=== PATIENT | female | born 1940 | race Hispanic/Latino ===

== ENCOUNTER → 2023-12-30 | Outpatient (CLI) | payer OTHER, MEDICARE ==
[~2023-12-30] MED LIST: BACL10TA PO; GLIP5TAB15 PO; HYDR25TA PO; METF-444 PO; METO-408 PO; NITR100C9 PO; SIMV40TA59 PO; SITA100T12 PO
== END | disposition home or self-care (01) ==
LOC: RAH 07:34
PROVIDERS: ATTEND Internal Medicine Gastroenterology
DX: R14.0 Abdominal distension (gaseous) (principal)
CPT/HCPCS: 78264; A9541

== ENCOUNTER 2024-03-24 19:03 | Inpatient (IN) | payer OTHER, MEDICARE ==
[~2024-03-24] VITALS: Ht 152.4 cm; Wt 55.7 kg
[~2024-03-24 19:03] MED LIST changes: -BACL10TA PO; +FAMO40TA7 PO; +ISOS20TA85 PO; -METF-444 PO; +METF-527 PO; -NITR100C9 PO; +PANT20TA18 PO; +PRAV40TA3 PO; -SIMV40TA59 PO; +SUCR1TAB2 PO; +TELM20TA8 PO
[2024-03-24 19:47] LABS: BASOPHILS # (AUTO) 0.02 K/uL (0.00-0.20); BASOPHILS % (AUTO) 0.1 % (0.0-5.0); HEMATOCRIT 30.5 % (36-48); IMMATURE GRANULOCYTE ABSOLUTE 0.13 K/uL (0-1); LYMPHOCYTES # (AUTO) 0.6 K/uL (1.0-4.8); LYMPHOCYTES % (AUTO) 2.9 % (21.0-51.0); MEAN CORPUSCULAR HEMOGLOBIN 34.9 pg (27.0-33.0); MEAN CORPUSCULAR HGB CONC 34.8 g/dL (32.0-36.0); MEAN CORPUSCULAR VOLUME 100.3 fL (79-99); MONOCYTES # (AUTO) 1.3 K/uL (0.1-1.0); MONOCYTES % (AUTO) 6.8 % (3.0-13.0); NEUTROPHILS % (AUTO) 89.5 % (40.0-77.0); PLATELET COUNT (AUTO) 122 K/uL (130-400); RED BLOOD CELL COUNT(AUTO) 3.04 MIL/uL (4.00-5.50); RED CELL DISTRIBUTION WIDTH 13.6 % (11.0-15.5)
[2024-03-24 20:05] LABS: CREATININE 1.2 mg/dL (0.5-1.0); POTASSIUM 4.6 mmol/L (3.5-5.1)
[2024-03-24 20:11] LABS: ALBUMIN 2.3 g/dL (3.5-5.0); BILIRUBIN,TOTAL 0.5 mg/dL (0.2-1.0); TOTAL PROTEIN, SERUM 6.2 g/dL (6.0-8.3)
[2024-03-24] MEDS: 0.9%NACL 1000ML 1,000 ML IV ONE (20:51)
[2024-03-24] MEDS ORDERED: IOHEXOL-350 75 ML VIAL IV ONE (21:40)
[2024-03-24 22:46] LABS: APPEARANCE,URINE CLEAR (CLEAR); BILIRUBIN,URINE NEGATIVE (NEGATIVE); COLOR,URINE COLORLESS (YELLOW); GLUCOSE, URINE (UA) 300 mg/dL (NEGATIVE); KETONES,URINE NEGATIVE (NEGATIVE); LEUKOCYTE ESTERASE ,URINE NEGATIVE Leu/uL (NEGATIVE); NITRATE,URINE NEGATIVE (NEGATIVE); OCCULT BLOOD,URINE NEGATIVE (NEGATIVE); PH,URINE 6.5 (5.0-8.0); PROTEIN,URINE NEGATIVE (NEGATIVE); UROBILINOGEN,URINE 0.2 mg/dL (0.2-1.0)
[2024-03-24 22:49] LABS: BACTERIA,URINE RARE /HPF (None Seen); MUCUS,URINE RARE LPF (None Seen); RBC,URINE 0-1 /HPF (0-1); SQUAMOUS EPITHELIAL CELL,UR RARE /HPF (0-2)
[2024-03-24] MEDS: ONDANSETRON 4MG INJ IVP ONE (23:31)
[2024-03-24] MEDS: CEFTRIAXONE 2GM VIAL IVPB STA (23:31)
[2024-03-25] MEDS ORDERED: ACETAMINOPHEN 325 MG TAB PO PRN
[2024-03-25] MEDS ORDERED: VANCOMYCIN KIT 1 GM/250 ML IV.KIT IV ONE
[2024-03-25] MEDS ORDERED: CIPR500T10 PO (00:03)
[2024-03-25] MEDS ORDERED: CLOP75TA32 PO (00:03)
[2024-03-25] MEDS ORDERED: ASPI-1197 PO (00:03)
[2024-03-25] MEDS ORDERED: PANT40GR PO (00:03)
[2024-03-25] MEDS ORDERED: ONDA22I IM (00:03)
[2024-03-25] MEDS ORDERED: LISI2.5T13 PO (00:03)
[2024-03-25] MEDS: 0.9%NACL 1000ML 1,000 ML IV SCH (00:07)
[2024-03-25] MEDS: METRONIDAZOLE 500MG/100ML BAG IV STA (00:07)
[2024-03-25] MEDS: 0.9%NACL 50ML IV SCH (02:50)
[2024-03-25] MEDS: ZOSYN 3.375GM +NS 50ML IVPB SCH (02:51)
[2024-03-25] MEDS: VANCOMYCIN KIT 1 GM/250 ML IV.KIT IV ONE (02:52)
[2024-03-25] MEDS ORDERED: VANCOMYCIN PROTOCOL PER PHARMACY IV SCH (03:00)
[2024-03-25] MEDS: ONDANSETRON 4MG INJ IVP ONE (03:28)
[2024-03-25] MEDS: MORPHINE 2 MG SYG IM ONE (03:30)
[2024-03-25] MEDS: HYDROMORPHONE 0.5 MG SYG (0.5MG/0.5ML) IVP ONE (06:06)
[2024-03-25] MEDS: ONDANSETRON 4MG INJ IVP PRN (06:06)
[2024-03-25 06:29] LABS: ALBUMIN 2.1 g/dL (3.5-5.0); BILIRUBIN,TOTAL 0.3 mg/dL (0.2-1.0); POTASSIUM 4.4 mmol/L (3.5-5.1); TOTAL PROTEIN, SERUM 5.7 g/dL (6.0-8.3)
[2024-03-25] MEDS: MAGNESIUM 2GM PREMIX 50ML 50 ML IV PRN (08:00)
[2024-03-25 08:39] LABS: BASOPHILS # (AUTO) 0.03 K/uL (0.00-0.20); BASOPHILS % (AUTO) 0.2 % (0.0-5.0); IMMATURE GRANULOCYTE ABSOLUTE 0.13 K/uL (0-1); LYMPHOCYTES # (AUTO) 0.4 K/uL (1.0-4.8); LYMPHOCYTES % (AUTO) 2.3 % (21.0-51.0); MEAN CORPUSCULAR HEMOGLOBIN 35.3 pg (27.0-33.0); MEAN CORPUSCULAR HGB CONC 35.2 g/dL (32.0-36.0); MEAN CORPUSCULAR VOLUME 100.3 fL (79-99); MONOCYTES # (AUTO) 0.9 K/uL (0.1-1.0); MONOCYTES % (AUTO) 5.8 % (3.0-13.0); NEUTROPHILS # (AUTO) 14.5 K/uL (1.8-7.7); NEUTROPHILS % (AUTO) 90.9 % (40.0-77.0); PLATELET COUNT (AUTO) 125 K/uL (130-400); RED BLOOD CELL COUNT(AUTO) 2.89 MIL/uL (4.00-5.50); RED CELL DISTRIBUTION WIDTH 13.6 % (11.0-15.5); WHITE BLOOD COUNT (AUTO) 15.9 K/uL (4.8-10.8)
[2024-03-25 08:40] VITALS: BP 130/59; PULSE 84; RESP 16; O2SAT 97
[2024-03-25 09:14] VITALS: O2SAT 97
[2024-03-25] MEDS ORDERED: ONDANSETRON 4MG INJ IV PRN (10:00)
[2024-03-25] MEDS: TELMISARTAN 20 MG PO SCH (11:00)
[2024-03-25] MEDS: METOPROLOL SUCCINATE 25 MG TAB.SR.24H PO SCH (11:17)
[2024-03-25] MEDS: CLOPIDOGREL 75MG TAB PO SCH (11:18)
[2024-03-25] MEDS: LISINOPRIL 2.5 MG TABLET PO SCH (11:18)
[2024-03-25] MEDS: ASPIRIN 81MG CHEW TAB PO SCH (11:18)
[2024-03-25] MEDS: PANTOPRAZOLE 40 MG TAB DR PO SCH (11:18)
[2024-03-25] MEDS: SITAGLIPTIN 100 MG PO SCH (11:24)
[2024-03-25 11:30] VITALS: BP 119/64; PULSE 84; RESP 16
[2024-03-25] MEDS ORDERED: PHARMACY COMMUNICATION MISC SCH (11:30)
[2024-03-25] MEDS: SUCRALFATE 1 GM TABLET PO SCH (14:16)
[2024-03-25] MEDS: MAGNESIUM 2GM PREMIX 50ML 50 ML IV ONE (15:38)
[2024-03-25 16:46] VITALS: BP 122/65; PULSE 71; RESP 16
[2024-03-25 20:00] VITALS: BP 142/64; PULSE 89; RESP 18
[2024-03-25] MEDS: VANCOMYCIN 500MG+NS 100ML IV SCH (20:49)
[2024-03-25] MEDS: VOLTAREN PO SCH (20:52)
[2024-03-26] VITALS (9 sets, daily range): BP systolic 119–157; BP diastolic 48–73; PULSE 73–88; RESP 16–20; O2SAT 97–98
[2024-03-26 03:52] LABS: HEMATOCRIT 26.4 % (36-48); MEAN CORPUSCULAR HEMOGLOBIN 34.2 pg (27.0-33.0); MEAN CORPUSCULAR HGB CONC 34.5 g/dL (32.0-36.0); MEAN CORPUSCULAR VOLUME 99.2 fL (79-99); RED BLOOD CELL COUNT(AUTO) 2.66 MIL/uL (4.00-5.50); RED CELL DISTRIBUTION WIDTH 13.6 % (11.0-15.5); WHITE BLOOD COUNT (AUTO) 13.2 K/uL (4.8-10.8)
[2024-03-26 04:09] LABS: ALBUMIN 1.8 g/dL (3.5-5.0); BILIRUBIN,TOTAL 0.3 mg/dL (0.2-1.0); CREATININE 1.1 mg/dL (0.5-1.0); MAGNESIUM 2.1 mg/dL (1.80-2.40); POTASSIUM 4.4 mmol/L (3.5-5.1); TOTAL PROTEIN, SERUM 4.9 g/dL (6.0-8.3)
[2024-03-26] MEDS ORDERED: CIPROFLOXACIN HCL 500 MG PO SCH (09:00)
[2024-03-26] MEDS ORDERED: NON-FORMULARY MEDICATION 1 EACH (Sitagliptin Phosphate (Januvia) 100 MG) PO SCH (09:00)
[2024-03-26] MEDS: IPRATROPIUM 0.5 MG/2.5 ML INH IH SCH (11:10)
[2024-03-27] VITALS (9 sets, daily range): BP systolic 124–158; BP diastolic 61–75; PULSE 72–102; RESP 16–20; O2SAT 96–99
[2024-03-27 05:39] LABS: BASOPHILS # (AUTO) 0.04 K/uL (0.00-0.20); BASOPHILS % (AUTO) 0.4 % (0.0-5.0); EOSINOPHILS # (AUTO) 0.05 K/uL (0.00-0.70); EOSINOPHILS % (AUTO) 0.5 % (0.0-8.0); HEMATOCRIT 27.5 % (36-48); LYMPHOCYTES # (AUTO) 1.3 K/uL (1.0-4.8); LYMPHOCYTES % (AUTO) 13.7 % (21.0-51.0); MEAN CORPUSCULAR HEMOGLOBIN 34.4 pg (27.0-33.0); MEAN CORPUSCULAR HGB CONC 33.8 g/dL (32.0-36.0); MEAN CORPUSCULAR VOLUME 101.9 fL (79-99); MONOCYTES # (AUTO) 0.8 K/uL (0.1-1.0); MONOCYTES % (AUTO) 8.9 % (3.0-13.0); NEUTROPHILS # (AUTO) 6.9 K/uL (1.8-7.7); NEUTROPHILS % (AUTO) 75.4 % (40.0-77.0); PLATELET COUNT (AUTO) 141 K/uL (130-400); RED CELL DISTRIBUTION WIDTH 13.7 % (11.0-15.5); WHITE BLOOD COUNT (AUTO) 9.1 K/uL (4.8-10.8)
[2024-03-27 05:54] LABS: ALBUMIN 1.8 g/dL (3.5-5.0); BILIRUBIN,TOTAL 0.4 mg/dL (0.2-1.0); CREATININE 1.2 mg/dL (0.5-1.0); POTASSIUM 3.9 mmol/L (3.5-5.1)
[2024-03-28] VITALS: BP 144/63; PULSE 77; RESP 18
[2024-03-28 04:00] VITALS: BP 135/60; PULSE 76; RESP 15
[2024-03-28 06:07] LABS: BASOPHILS # (AUTO) 0.04 K/uL (0.00-0.20); BASOPHILS % (AUTO) 0.5 % (0.0-5.0); EOSINOPHILS # (AUTO) 0.06 K/uL (0.00-0.70); EOSINOPHILS % (AUTO) 0.7 % (0.0-8.0); HEMATOCRIT 26.7 % (36-48); LYMPHOCYTES # (AUTO) 1.3 K/uL (1.0-4.8); LYMPHOCYTES % (AUTO) 14.7 % (21.0-51.0); MEAN CORPUSCULAR HEMOGLOBIN 34.4 pg (27.0-33.0); MEAN CORPUSCULAR HGB CONC 34.8 g/dL (32.0-36.0); MEAN CORPUSCULAR VOLUME 98.9 fL (79-99); MONOCYTES # (AUTO) 0.8 K/uL (0.1-1.0); NEUTROPHILS # (AUTO) 6.4 K/uL (1.8-7.7); NEUTROPHILS % (AUTO) 73.9 % (40.0-77.0); PLATELET COUNT (AUTO) 170 K/uL (130-400); RED CELL DISTRIBUTION WIDTH 13.6 % (11.0-15.5); WHITE BLOOD COUNT (AUTO) 8.6 K/uL (4.8-10.8)
[2024-03-28 06:28] LABS: BILIRUBIN,TOTAL 0.3 mg/dL (0.2-1.0); POTASSIUM 4.9 mmol/L (3.5-5.1); TOTAL PROTEIN, SERUM 5.3 g/dL (6.0-8.3)
[2024-03-28 08:00] VITALS: BP 151/70; PULSE 71; RESP 17; O2SAT 98
[2024-03-28 10:19] VITALS: PULSE 79; RESP 18
[2024-03-28 10:21] VITALS: PULSE 79; RESP 18; O2SAT 98
== END 2024-03-28 16:15 | disposition home or self-care (01) | DRG 872 ==
LOC: EDH 19:03 → EDHIP 23:48 → 4BH 03-25 08:40
PROVIDERS: ADMIT Family Medicine; ATTEND Family Medicine
DX: A41.9 Sepsis, unspecified organism (principal); N12 Tubulo-interstitial nephritis, not specified as acute or chronic; E87.1 Hypo-osmolality and hyponatremia; K57.92 Diverticulitis of intestine, part unspecified, without perforation or abscess without bleeding; E83.42 Hypomagnesemia; I25.10 Atherosclerotic heart disease of native coronary artery without angina pectoris; E11.9 Type 2 diabetes mellitus without complications; D25.9 Leiomyoma of uterus, unspecified; N28.1 Cyst of kidney, acquired; I10 Essential (primary) hypertension; E78.00 Pure hypercholesterolemia, unspecified; K21.9 Gastro-esophageal reflux disease without esophagitis; E86.0 Dehydration; N28.89 Other specified disorders of kidney and ureter; Z87.440 Personal history of urinary (tract) infections; Z91.018 Allergy to other foods; I25.2 Old myocardial infarction; Z90.49 Acquired absence of other specified parts of digestive tract
CPT/HCPCS: 36415; 71045; 74177; 76770; 80053; 81001; 82948; 83605; 83735; 84145; 84484; 85025; 85027; 86140; 87040; 93005; 94640; 94664; 96375; 99291; G0378; J0696; J1170; J2270; J2405; J2543; J3370; J3475; J3490; J7030; Q9967

== ENCOUNTER → 2024-03-30 | Outpatient (CLI) | payer OTHER, MEDICARE ==
[~2024-03-30] MED LIST changes: +ASPI-1197 PO; +CIPR500T10 PO; +CLOP75TA32 PO; -FAMO40TA7 PO; -GLIP5TAB15 PO; -HYDR25TA PO; -ISOS20TA85 PO; +LISI2.5T13 PO; -METF-527 PO; +ONDA22I IM; -PANT20TA18 PO; +PANT40GR PO
[2024-03-30] MEDS: REGADENOSON 0.4 MG/5 ML PF SYG IVP ONE (15:48)
== END ==
LOC: SHCH 08:39
PROVIDERS: ATTEND Internal Medicine Cardiovascular Disease
DX: I21.9 Acute myocardial infarction, unspecified (principal); R06.00 Dyspnea, unspecified; I25.10 Atherosclerotic heart disease of native coronary artery without angina pectoris
CPT/HCPCS: 78452; 96374; 93017; J2785; A9500 ×2

== ENCOUNTER → 2024-08-27 | Outpatient (CLI) | payer OTHER, MEDICARE ==
[~2024-08-27] MED LIST changes: +AEC81 PO; +FURO20TA4 PO; +IPRA0.2S54 IH; +IPRNEB IH; +METF-446 PO; +NITR100C PO; +PANT40TA54 PO
[2024-08-27] MEDS: REGADENOSON 0.4 MG/5 ML PF SYG IVP ONE (14:56)
== END | disposition home or self-care (01) ==
LOC: SHCH 08:35
PROVIDERS: ATTEND Internal Medicine Cardiovascular Disease
DX: I25.10 Atherosclerotic heart disease of native coronary artery without angina pectoris (principal)
CPT/HCPCS: 78452; 93017; J2785; A9500 ×2

== ENCOUNTER → 2024-10-04 | Outpatient (CLI) | payer OTHER, MEDICARE ==
[~2024-10-04] MED LIST changes: +IOHEXOL 350 MG/ML 100ML INFUS..BTL IV ONE
--- NOTE | 2024-10-04 09:39 | HMCIMG ---
CT ABDOMEN/PELVIS W/WO CONTRAS HISTORY: Renal cancer COMPARISON: 03/24/2024 TECHNIQUE: Multiple sequential axial images of the abdomen and pelvis were obtained from the dome of the diaphragm through symphysis pubis. Patient was given 75 cc of Omnipaque through intravenous route. Oral contrast was not given. FINDINGS: No pleural effusion is seen bilaterally. There is no evidence of parenchymal disease or pulmonary nodule of the visualized lower lungs. Degenerative changes of the thoracolumbar spine are present. The heart is not enlarged. The liver, spleen, adrenal glands and pancreas are unremarkable. There is no evidence of hydronephrosis bilaterally. There is right lower pole renal mass anteriorly measuring 2.2 cm. No evidence of renal stone is seen. Fecal material is seen in the colon. There are normal size retroperitoneal and mesenteric lymph nodes. No ascites is seen. No CT evidence of acute appendicitis is seen. There is diverticulosis. Pelvic sidewalls are symmetric bilaterally. Uterus is enlarged suggestive of fibroid uterus. Bladder is well distended without wall thickening. IMPRESSION: 1. There is right lower pole renal mass anteriorly measuring 2.2 cm. Diverticulosis. Fibroid uterus. CT was performed with one or more following dose reduction techniques: automated exposure control, adjustment of the mA and kv according to patient's size, or use of a iterative reconstruction technique.
== END | disposition home or self-care (01) ==
LOC: RAH 07:19
PROVIDERS: ATTEND Urology
DX: C64.9 Malignant neoplasm of unspecified kidney, except renal pelvis (principal); D25.9 Leiomyoma of uterus, unspecified; D30.00 Benign neoplasm of unspecified kidney; K57.90 Diverticulosis of intestine, part unspecified, without perforation or abscess without bleeding; N28.89 Other specified disorders of kidney and ureter; M47.815 Spondylosis without myelopathy or radiculopathy, thoracolumbar region
CPT/HCPCS: 74178; Q9967

== ENCOUNTER → 2024-10-09 | Outpatient (CLI) | payer OTHER, MEDICARE ==
[~2024-10-09] MED LIST changes: -IOHEXOL 350 MG/ML 100ML INFUS..BTL IV ONE
--- NOTE | 2024-10-09 13:02 | HMCSR ---
APPROVED REPORT EXAM: Two-dimensional and M-mode echocardiogram with Doppler and color Doppler. INDICATION ICD: Acute systolic CHF I50.21 2D Dimensions RVDd2.8 cmLVEF(%)34.7 (>50%)LVED Vol(simp.)110.0 mL IVSd1.0 (0.7-1.1cm)FS(%)16 %LVES Vol(simp.)75.0 mL LVDd4.2 (3.8-5.6cm)Ao Root(2D)3.1 (2.0-3.7cm)LVEF(%, simp.)32 % PWd1.0 (0.7-1.1cm)LVOT diam1.9 (1.8-2.4cm)LA ESV INDEX (BP)29.53 mL/m2 LVDs3.5 (2.5-4.0cm)IVC diam1.1 cm Aortic Valve AoV Vmax1.7 m/Nely Peak GR10.9 mmHgLVOT Vmax1.2 m/s AoV VTI0.4 mAo Mean GR6.3 mmHgLVOT VTI0.22 m GEOFFREY (VMAX)1.9 cm2AVA (VTI) 1.9 cm2 Mitral Valve MV E Vmax75.8 cm/sDECEL Lbmb707 ms MV A Hbqi051.8 cm/sP 1/2 T39 ms E/A ratio0.6MVA (PHT)5.6 cm2 MR Max PG88 mmHg TDI E/E' Djpxol87.9E/E' Bleiqcw74.8 Pulmonary Valve PV Vmax1.1 m/sPV VTI0.26 mPV Mean GR3 mmHg PV Peak GR5.3 mmHg Tricuspid Valve TR Vmax3.2 m/sRAP (EST) 3 deFdDYES51.8 mmHg TR Peak GR39.8 mmHg Left Ventricle Left ventricular cavity size is normal. Hypokinetic distal anterior, apical and septal queen. There i s borderline concentric left ventricular hypertrophy. LVEF is 30-35%. Grade 2 diastolic dysfunction. Right Ventricle The right ventricle is normal size. Right ventricular systolic function is moderately reduced. Atria The left atrium size is normal. The right atrium size is normal. Aortic Valve Aortic valve is trileaflet. The aortic valve is mildly thickened but opens well. Prominent aortic arthur ve Lambl's excrescences are present vs vegetation. Trace aortic regurgitation. There is no aortic arthur vular stenosis. Calculated aortic valve area is 1.9 cm2 with maximum pressure gradient of 10.9 mmHg a nd mean pressure gradient of 6.3 mmHg. Mitral Valve Mitral annular calcification is mild. The mitral valve is mildly thickened but opens well. Mitral reg urgitation is trace to mild. There is no mitral valve stenosis. Tricuspid Valve The tricuspid valve leaflets appear normal. There is mild to moderate tricuspid regurgitation. Right ventricular systolic pressure is estimated at 40-50 mmHg. Pulmonic Valve Pulmonic valve is not well visualized. There is no pulmonic valvular regurgitation. Great Vessels The aortic root is normal in size. IVC is dilated and collapses >50% with inspiration. Pericardium No pericardial effusion. Conclusion There is borderline concentric left ventricular hypertrophy. LVEF is 30-35%. Grade 2 diastolic dysfunction. Hypokinetic distal anterior, apical and septal queen. Aortic valve is trileaflet. The aortic valve is mildly thickened but opens well. Prominent aortic valve Lambl's excrescences are present vs vegetation.
== END | disposition home or self-care (01) ==
LOC: SHCH 09:06
PROVIDERS: ATTEND Internal Medicine Cardiovascular Disease
DX: I08.3 Combined rheumatic disorders of mitral, aortic and tricuspid valves (principal); I50.21 Acute systolic (congestive) heart failure
CPT/HCPCS: 93306

== ENCOUNTER → 2024-11-15 | Outpatient (CLI) | payer OTHER, MEDICARE ==
[2024-11-15 12:15] LABS: CREATININE 1.1 mg/dL (0.5-1.0); POTASSIUM 4.9 mmol/L (3.5-5.1)
== END | disposition home or self-care (01) ==
LOC: LAB 09:10
PROVIDERS: ATTEND Internal Medicine Cardiovascular Disease
DX: I10 Essential (primary) hypertension (principal)
CPT/HCPCS: 36415; 80048